=== PATIENT | male | born 1970 | race African-American/Black ===

== ENCOUNTER 2020-03-19 22:53 | Inpatient (IN) | payer OTHER ==
[~2020-03-19] VITALS: Ht 177.8 cm; Wt 79.8 kg
[2020-03-19] MEDS ORDERED: HYDR-4009 PO (23:00)
[2020-03-19] MEDS ORDERED: MORP15TA67 PO (23:01)
[2020-03-19] MEDS ORDERED: REGO40TA PO (23:01)
[2020-03-19] MEDS ORDERED: SODIUM CHLORIDE 0.9% 1,000 ML IV ONE (23:23)
[2020-03-19] MEDS ORDERED: MORPHINE SULFATE 4 MG/ML CPJ (NOT FOR IM USE) IV STA (23:23)
[2020-03-19] MEDS ORDERED: ONDANSETRON HCL 4MG/2ML INJ IV STA (23:23)
[2020-03-20] VITALS (8 sets, daily range): BP systolic 81–121; BP diastolic 38–104
[2020-03-20 00:41] LABS: HEMATOCRIT. 29.6 % (42.0-52.0); HEMOGLOBIN. 9.2 g/dL (14.0-18.0); MEAN CORPUSCULAR HEMOGLOBIN 25.3 pg (28.0-32.0); MEAN CORPUSCULAR VOLUME 81.5 fL (80.0-94.0); MEAN PLATELET VOLUME 7.2 fl (7.4-10.4); PLATELET 287 x1000/uL (130-400); RED BLOOD CELL COUNT 3.63 mill/uL (4.7-6.1); RED CELL DISTRIBUTION WIDTH 20.3 % (11.6-14.6)
[2020-03-20 00:52] LABS: CHLORIDE 100 mEq/L (98-107)
[2020-03-20 01:00] LABS: PLATELET ESTIMATE NORMAL
[2020-03-20] MEDS ORDERED: DEXTROSE 50% WATER 50ML SYRINGE IV NR ×2 (01:15→16:45)
[2020-03-20] MEDS ORDERED: PIPERACILLIN/TAZ 3.375G PREMIX 50 ML IV NR (01:15)
[2020-03-20] MEDS ORDERED: CALCIUM CHLORIDE 1GM/10ML SYR IV NR (01:15)
[2020-03-20] MEDS ORDERED: VANCOMYCIN 1 G PREMIX 200 ML IV NR (01:15)
[2020-03-20] MEDS ORDERED: INSULIN REGULAR (HUMULIN R) 300UNITS/3ML IV NR ×2 (01:15→17:15)
[2020-03-20] MEDS ORDERED: SODIUM CHLORIDE 0.9% 1000ML BAG (SEPSIS BOLUS) IV NR (01:15)
[2020-03-20] MEDS ORDERED: ALBUTEROL (0.083%) 2.5MG/3ML NEB HHN NR (01:15)
[2020-03-20] MEDS ORDERED: SODIUM BICARBONATE 8.4% 1 MEQ/ML 50ML SYR IV NR ×2 (01:15→16:45)
[2020-03-20 08:19] LABS: HEMATOCRIT. 26.5 % (42.0-52.0); HEMOGLOBIN. 8.3 g/dL (14.0-18.0); MEAN CORPUSCULAR HEMOGLOBIN 25.4 pg (28.0-32.0); MEAN CORPUSCULAR VOLUME 81.1 fL (80.0-94.0); MEAN PLATELET VOLUME 7.1 fl (7.4-10.4); PLATELET 233 x1000/uL (130-400); RED BLOOD CELL COUNT 3.27 mill/uL (4.7-6.1); RED CELL DISTRIBUTION WIDTH 20.1 % (11.6-14.6)
[2020-03-20 08:28] LABS: CHLORIDE 103 mEq/L (98-107)
[2020-03-20] MEDS ORDERED: IPRATROPIUM BROMIDE (0.02%) 0.5MG/2.5ML NEB HHN PRN (09:15)
[2020-03-20] MEDS ORDERED: PIPERACILLIN/TAZOBACTAM 3.375 G in DEXT 5% WATER 100 ML IV SCH (09:15)
[2020-03-20 09:25] LABS: PLATELET ESTIMATE NORMAL
[2020-03-20] MEDS: SODIUM CHLORIDE 0.9% 1,000 ML IV SCH ×2 (09:53→23:25)
[2020-03-20] MEDS: MORPHINE SULFATE 15MG TABLET SR PO SCH ×3 (09:54→21:44)
[2020-03-20] MEDS ORDERED: SODIUM POLYSTYRENE SULFONATE 15 G/60 ML BOT PO SCH (10:00)
[2020-03-20] MEDS ORDERED: ONDANSETRON HCL 4MG/2ML INJ IV PRN (10:45)
[2020-03-20 11:10] LABS: TOTAL IRON BINDING CAPACITY 82 ug/dL (250-450)
[2020-03-20] MEDS: PIPERACILLIN/TAZOBACTAM 2.25 G in DEXTROSE 5% WATER 50 ML IV SCH ×3 (12:37→23:25)
[2020-03-20] MEDS ORDERED: CALCIUM GLUCONATE 100MG/ML 10ML VIAL IV NR (17:15)
[2020-03-20] MEDS: STIVARGA 40 MG PO SCH (18:39)
[2020-03-21] VITALS (12 sets, daily range): BP systolic 87–139; BP diastolic 54–76
[2020-03-21] MEDS: PIPERACILLIN/TAZOBACTAM 2.25 G in DEXTROSE 5% WATER 50 ML IV SCH ×3 (04:48→18:22)
[2020-03-21] MEDS: MORPHINE SULFATE 15MG TABLET SR PO SCH ×2 (08:29→20:29)
[2020-03-21] MEDS: STIVARGA 40 MG PO SCH (08:29)
[2020-03-21 10:45] LABS: HEMATOCRIT. 27.9 % (42.0-52.0); HEMOGLOBIN. 8.6 g/dL (14.0-18.0); MEAN CORPUSCULAR HEMOGLOBIN 25.7 pg (28.0-32.0); MEAN CORPUSCULAR VOLUME 83.6 fL (80.0-94.0); MEAN PLATELET VOLUME 7.2 fl (7.4-10.4); PLATELET 187 x1000/uL (130-400); RED BLOOD CELL COUNT 3.34 mill/uL (4.7-6.1); RED CELL DISTRIBUTION WIDTH 20.3 % (11.6-14.6)
[2020-03-21 11:09] LABS: NUCLEATED RED BLOOD CELLS 1 /100 WBC
[2020-03-21 11:10] LABS: PLATELET ESTIMATE NORMAL
[2020-03-21] MEDS ORDERED: VANCOMYCIN 1 G PREMIX 200 ML IV NR (11:30)
[2020-03-21] MEDS ORDERED: DOXYCYCLINE 100 MG in DEXT 5% WATER 100 ML IV SCH (12:00)
[2020-03-21] MEDS: OXYCODONE HCL/ACETAMINOPHEN 5/325MG TABLET PO PRN (12:02)
[2020-03-21] MEDS: SODIUM CHLORIDE 0.9% 1,000 ML IV SCH ×2 (14:00→20:26)
[2020-03-21 14:58] LABS: CLARITY URINE TURBID (CLEAR); COLOR URINE RED (YELLOW); KETONES URINE TRACE (NEGATIVE); LEUKOCYTE ESTERASE URINE 1+ (NEGATIVE); NITRITE URINE POSITIVE (NEGATIVE); OCCULT BLOOD URINE 1+ (NEGATIVE); PROTEIN URINE 1+ (NEGATIVE); SPECIFIC GRAVITY URINE 1.024 (1.005-1.030)
[2020-03-21 15:13] LABS: *AMPHETAMINES SCREEN URINE NEGATIVE (NEGATIVE); *BARBITURATES SCREEN URINE NEGATIVE (NEGATIVE); *BENZODIAZEPINES SCREEN URINE NEGATIVE (NEGATIVE); *COCAINE SCREEN URINE NEGATIVE (NEGATIVE); METHADONE URINE SCREEN NEGATIVE (NEGATIVE); OPIATES URINE SCREEN PRESUMTIVE POSITIVE (NEGATIVE)
[2020-03-21 15:14] LABS: CANNABINOID URINE SCREEN NEGATIVE (NEGATIVE); PHENCYCLIDINE URINE SCREEN NEGATIVE (NEGATIVE)
[2020-03-21] MEDS: METOCLOPRAMIDE HCL 10MG/2ML VIAL IV SCH (18:22)
[2020-03-21] MEDS: DOXYCYCLINE HYCLATE 100MG CAPSULE PO SCH (20:27)
[2020-03-21] MEDS: TAMSULOSIN HCL 0.4MG SR CAPSULE PO SCH (20:28)
[2020-03-22] VITALS (12 sets, daily range): BP systolic 88–112; BP diastolic 56–73
[2020-03-22] MEDS: PIPERACILLIN/TAZOBACTAM 2.25 G in DEXTROSE 5% WATER 50 ML IV SCH ×5 (01:12→23:57)
[2020-03-22] MEDS: LINEZOLID 600 MG PREMIX 300 ML IV SCH ×2 (01:12→12:17)
[2020-03-22] MEDS: METOCLOPRAMIDE HCL 10MG/2ML VIAL IV SCH ×5 (01:12→23:58)
[2020-03-22] MEDS: SODIUM CHLORIDE 0.9% 1,000 ML IV SCH ×2 (04:45→12:23)
[2020-03-22 07:24] LABS: BASOPHILS % 0.1 % (0.0-2.0); EOSINOPHILS % 0.1 % (0.0-5.0); HEMATOCRIT. 24.3 % (42.0-52.0); HEMOGLOBIN. 7.4 g/dL (14.0-18.0); LYMPHOCYTES % 7.1 % (20.0-50.0); MEAN CORPUSCULAR HEMOGLOBIN 25.4 pg (28.0-32.0); MEAN CORPUSCULAR VOLUME 83.7 fL (80.0-94.0); MEAN PLATELET VOLUME 7.4 fl (7.4-10.4); MONOCYTES % 3.4 % (2.0-8.0); NEUTROPHILS % 89.3 % (40.0-76.0); PLATELET 143 x1000/uL (130-400); RED BLOOD CELL COUNT 2.91 mill/uL (4.7-6.1); RED CELL DISTRIBUTION WIDTH 20.5 % (11.6-14.6)
[2020-03-22] MEDS: STIVARGA 40 MG PO SCH (09:03)
[2020-03-22] MEDS: DOXYCYCLINE HYCLATE 100MG CAPSULE PO SCH (09:03)
[2020-03-22] MEDS: MORPHINE SULFATE 15MG TABLET SR PO SCH ×2 (09:04→21:00)
[2020-03-22] MEDS ORDERED: SODIUM POLYSTYRENE SULFONATE 15 G/60 ML BOT PO SCH (11:00)
[2020-03-22] MEDS ORDERED: SODIUM BICARBONATE 8.4% 1 MEQ/ML 50ML SYR IV SCH (14:00)
[2020-03-22] MEDS ORDERED: INSULIN REGULAR (HUMULIN R) UD 100 UNITS/ML SYR IV SCH (14:00)
[2020-03-22] MEDS ORDERED: DEXTROSE 50% WATER 50ML SYRINGE IV SCH (14:00)
[2020-03-22] MEDS ORDERED: CALCIUM GLUCONATE 1,000 MG in DEXT 5% WATER 90 ML IV SCH (15:00)
[2020-03-22] MEDS ORDERED: LORAZEPAM 2MG/ML CPJ IV PRN (16:45)
[2020-03-22 17:52] LABS: BG CARBOXYHEMOGLOBIN 0.1 % (0.5-1.5); BG DEOXYHEMOGLOBIN 0.8 % (0.0-5.0); BG FRACTION INSPIRED OXYGEN 32; BG HCO3 ACT 13.2 mmol/L (22.0-26.0); BG METHEMOGLOBIN 0.3 % (0.0-1.5); BG OXYGEN SATURATION 99.2 % (92.0-98.5); BG OXYHEMOGLOBIN 98.8 % (94.0-97.0); BG PCO2 35.5 mmHg (35.0-45.0); BG PH 7.187 (7.350-7.450); BG PO2 177.5 mmHg (75.0-100.0); BG SAMPLE SITE RIGHT BRACHIAL; BG TOTAL HEMOGLOBIN 8.1 g/dL (12.0-18.0); BG VENT MODE NASAL CANNULA
[2020-03-22] MEDS ORDERED: SODIUM BICARBONATE 8.4% 1 MEQ/ML 50ML SYR IV NR (18:00)
[2020-03-22] MEDS ORDERED: SODIUM BICARBONATE 100 MEQ in DEXTROSE 5% WATER 1,000 ML IV SCH (20:00)
[2020-03-22] MEDS: TAMSULOSIN HCL 0.4MG SR CAPSULE PO SCH (21:00)
[2020-03-22] MEDS: SODIUM BICARBONATE 100 MEQ in SODIUM CHLORIDE 0.9% 1,000 ML IV SCH ×2 (21:00→22:38)
[2020-03-22] MEDS ORDERED: SODIUM POLYSTYRENE SULFONATE 15 G/60 ML BOT NG SCH (23:30)
[2020-03-23] VITALS (90 sets, daily range): BP systolic 69–134; BP diastolic 25–90
[2020-03-23] MEDS: LINEZOLID 600 MG PREMIX 300 ML IV SCH ×2 (00:18→12:09)
[2020-03-23 03:29] LABS: BG BASE EXCESS -14.6 mmol/L (-2.0-2.0); BG DEOXYHEMOGLOBIN 0.5 % (0.0-5.0); BG FRACTION INSPIRED OXYGEN 32; BG HCO3 ACT 11.9 mmol/L (22.0-26.0); BG METHEMOGLOBIN 0.1 % (0.0-1.5); BG OXYGEN SATURATION 99.5 % (92.0-98.5); BG OXYHEMOGLOBIN 98.4 % (94.0-97.0); BG PH 7.216 (7.350-7.450); BG PO2 145.4 mmHg (75.0-100.0); BG SAMPLE SITE LEFT BRACHIAL; BG TOTAL HEMOGLOBIN 7.6 g/dL (12.0-18.0); BG VENT MODE NASAL CANNULA
[2020-03-23] MEDS: NOREPINEPHRINE 8 MG in DEXT 5% WATER 242 ML IV PRN (04:33)
[2020-03-23] MEDS: PIPERACILLIN/TAZOBACTAM 2.25 G in DEXTROSE 5% WATER 50 ML IV SCH ×3 (05:56→17:17)
[2020-03-23] MEDS: METOCLOPRAMIDE HCL 10MG/2ML VIAL IV SCH ×3 (05:56→17:14)
[2020-03-23 06:20] LABS: HEMATOCRIT. 26.6 % (42.0-52.0); HEMOGLOBIN. 7.8 g/dL (14.0-18.0); MEAN CORPUSCULAR HEMOGLOBIN 25.7 pg (28.0-32.0); MEAN CORPUSCULAR VOLUME 87.9 fL (80.0-94.0); PLATELET 138 x1000/uL (130-400); RED BLOOD CELL COUNT 3.03 mill/uL (4.7-6.1); RED CELL DISTRIBUTION WIDTH 20.9 % (11.6-14.6)
[2020-03-23] MEDS ORDERED: LIDOCAINE HCL 1% 20ML VIAL (Pyxis) INJ ONE (08:53)
[2020-03-23] MEDS ORDERED: HEPARIN 1000 UNITS/ML 10ML ONE (08:59)
[2020-03-23] MEDS: DEXT 5%/0.9% NACL 1,000 ML IV SCH (09:36)
[2020-03-23] MEDS: MORPHINE SULFATE 15MG TABLET SR PO SCH (10:24)
[2020-03-23] MEDS: OXYCODONE HCL/ACETAMINOPHEN 5/325MG TABLET PO PRN ×2 (12:09→18:45)
[2020-03-23 13:47] LABS: NUCLEATED RED BLOOD CELLS 2 /100 WBC
[2020-03-23 13:48] LABS: PLATELET ESTIMATE NORMAL
[2020-03-23] MEDS ORDERED: MORPHINE SULFATE 10MG/5ML ORAL SOLN UDC NG SCH (15:00)
[2020-03-23] MEDS: MIDODRINE HCL 5MG TABLET PO SCH (17:14)
[2020-03-23] MEDS: MORPHINE SULFATE 10MG/5ML ORAL SOLN UDC NG SCH (20:31)
[2020-03-23] MEDS: TAMSULOSIN HCL 0.4MG SR CAPSULE PO SCH (21:00)
[2020-03-24] VITALS (97 sets, daily range): BP systolic 77–130; BP diastolic 40–80
[2020-03-24] MEDS: LINEZOLID 600 MG PREMIX 300 ML IV SCH ×3 (00:29→23:56)
[2020-03-24] MEDS: PIPERACILLIN/TAZOBACTAM 2.25 G in DEXTROSE 5% WATER 50 ML IV SCH ×5 (00:29→23:57)
[2020-03-24] MEDS: MORPHINE SULFATE 10MG/5ML ORAL SOLN UDC NG SCH ×7 (00:30→23:57)
[2020-03-24] MEDS: METOCLOPRAMIDE HCL 10MG/2ML VIAL IV SCH ×5 (00:30→23:57)
[2020-03-24] MEDS: NOREPINEPHRINE 8 MG in DEXT 5% WATER 242 ML IV PRN ×2 (03:02→16:18)
[2020-03-24 05:03] LABS: HEMATOCRIT. 26.4 % (42.0-52.0); HEMOGLOBIN. 7.6 g/dL (14.0-18.0); MEAN CORPUSCULAR HEMOGLOBIN 25.6 pg (28.0-32.0); MEAN CORPUSCULAR VOLUME 88.1 fL (80.0-94.0); MEAN PLATELET VOLUME 7.8 fl (7.4-10.4); PLATELET 118 x1000/uL (130-400); RED BLOOD CELL COUNT 2.99 mill/uL (4.7-6.1); RED CELL DISTRIBUTION WIDTH 21.2 % (11.6-14.6)
[2020-03-24] MEDS: DEXT 5%/0.9% NACL 1,000 ML IV SCH (05:08)
[2020-03-24 08:17] LABS: NUCLEATED RED BLOOD CELLS 3 /100 WBC
[2020-03-24 08:18] LABS: PLATELET ESTIMATE SLIGHTLY DECREASED
[2020-03-24] MEDS: MIDODRINE HCL 5MG TABLET PO SCH ×3 (08:43→16:16)
[2020-03-24] MEDS ORDERED: HEPARIN SODIUM 1,000 UNIT/1ML VIAL IV NR (11:30)
[2020-03-24] MEDS: OXYCODONE HCL/ACETAMINOPHEN 5/325MG TABLET PO PRN (18:39)
[2020-03-24] MEDS: TAMSULOSIN HCL 0.4MG SR CAPSULE PO SCH (20:48)
[2020-03-25] VITALS (59 sets, daily range): BP systolic 55–131; BP diastolic 19–64
[2020-03-25] MEDS: NOREPINEPHRINE 8 MG in DEXT 5% WATER 242 ML IV PRN (01:01)
[2020-03-25] MEDS: DEXT 5%/0.9% NACL 1,000 ML IV SCH (04:11)
[2020-03-25] MEDS: MORPHINE SULFATE 10MG/5ML ORAL SOLN UDC NG SCH ×2 (04:15→08:29)
[2020-03-25] MEDS: METOCLOPRAMIDE HCL 10MG/2ML VIAL IV SCH ×2 (05:35→12:00)
[2020-03-25] MEDS: PIPERACILLIN/TAZOBACTAM 2.25 G in DEXTROSE 5% WATER 50 ML IV SCH ×2 (05:35→12:00)
[2020-03-25] MEDS: DEXTROSE 50% WATER 50ML SYRINGE IV PRN ×2 (07:05→10:56)
[2020-03-25] MEDS: DEXTROSE 50% WATER 50ML SYRINGE IV NR ×2 (07:15→07:42)
[2020-03-25 07:27] LABS: HEMATOCRIT. 28.4 % (42.0-52.0); HEMOGLOBIN. 7.9 g/dL (14.0-18.0); MEAN CORPUSCULAR HEMOGLOBIN 25.4 pg (28.0-32.0); MEAN CORPUSCULAR VOLUME 91.1 fL (80.0-94.0); MEAN PLATELET VOLUME 8.3 fl (7.4-10.4); PLATELET 89 x1000/uL (130-400); RED BLOOD CELL COUNT 3.11 mill/uL (4.7-6.1); RED CELL DISTRIBUTION WIDTH 22.7 % (11.6-14.6)
[2020-03-25] MEDS: MIDODRINE HCL 5MG TABLET PO SCH ×2 (08:26→12:38)
[2020-03-25] MEDS ORDERED: PHENYLEPHRINE 10 MG in DEXT 5% WATER 249 ML IV PRN (11:30)
[2020-03-25] MEDS ORDERED: DEXTROSE 10% WATER 500 ML IV ONE (11:30)
[2020-03-25] MEDS: LINEZOLID 600 MG PREMIX 300 ML IV SCH (12:00)
[2020-03-25] MEDS ORDERED: LORAZEPAM 2MG/ML CPJ IV PRN (12:45)
[2020-03-25] MEDS ORDERED: MORPHINE SULFATE 2 MG/ML CPJ (NOT FOR IM USE) IV PRN (12:45)
[2020-03-25 13:08] LABS: NUCLEATED RED BLOOD CELLS 9 /100 WBC
[2020-03-25 13:09] LABS: PLATELET ESTIMATE DECREASED
== END 2020-03-25 13:46 | disposition expired | DRG 871 ==
LOC: ER 22:53 → 5EST 03-20 02:34 → EDBEDREQ 03-20 02:37 → EDBEDREQDT 03-20 02:37 → EDBEDREQTM 03-20 02:37 → ENRESERV 03-20 07:47 → MICUNO 03-23 03:45
PROVIDERS: ADMIT Internal Medicine Nephrology; ATTEND Internal Medicine Nephrology
PROC: 06HY33Z Insertion of Infusion Device into Lower Vein, Percutaneous Approach (ICD-10-PCS; 2020-03-23)
PROC: 5A1D70Z Performance of Urinary Filtration, Intermittent, Less than 6 Hours Per Day (ICD-10-PCS; principal; 2020-03-24)
DX: A41.9 Sepsis, unspecified organism (principal); E43 Unspecified severe protein-calorie malnutrition; N17.0 Acute kidney failure with tubular necrosis; R65.21 Severe sepsis with septic shock; G93.41 Metabolic encephalopathy; C18.9 Malignant neoplasm of colon, unspecified; C78.7 Secondary malignant neoplasm of liver and intrahepatic bile duct; C34.90 Malignant neoplasm of unspecified part of unspecified bronchus or lung; E87.5 Hyperkalemia; Z66 Do not resuscitate; D64.9 Anemia, unspecified; R74.0 Nonspecific elevation of levels of transaminase and lactic acid dehydrogenase [LDH]; R16.0 Hepatomegaly, not elsewhere classified; Z85.07 Personal history of malignant neoplasm of pancreas; Z79.899 Other long term (current) drug therapy; Z85.05 Personal history of malignant neoplasm of liver; Z85.118 Personal history of other malignant neoplasm of bronchus and lung; Z68.25 Body mass index [BMI] 25.0-25.9, adult; Z78.1 Physical restraint status
CPT/HCPCS: 36415; 36600; 71045; 74176; 76770; 76937; 80048; 80053; 80076; 80202; 80305; 81003; 82105; 82140; 82248; 82375; 82378; 82728; 82805; 82962; 83540; 83550; 83605; 84132; 84145; 84484; 85025; 86301; 86850; 86900; 93005; 99291; C1752; J0610; J1644; J1815; J2020; J2060; J2270; J2405; J2543; J2765; J3370; J3490; J7030; J7042; J7060; J7070